=== PATIENT | female | born 1995 | race Caucasian/White ===

== ENCOUNTER 2017-02-04 04:38 | Emergency (ER) | payer OTHER ==
[2017-02-04 05:12] VITALS: BP 116/73; PULSE 82; TEMP 98.3; BMI 37.1
--- NOTE | 2017-02-04 05:12 | PDOC ---
History of Present Illness - General Stated Complaint: SWOLLEN RIGHT KNEE Time Seen by Provider: 02/04/17 04:55 History Source: Patient Exam Limitations: No Limitations - History of Present Illness Initial Comments: 02/04/17 05:12 21-year-old female without any medical history presents to the emergency department with her mother complaining of right knee pain times one day. Patient states she twisted her right knee earlier yesterday and was seen at an urgent care center ([facility]). Patient had an x-ray of the right knee which showed no dislocation or fracture. Pain is described as 6/10 dull nonradiating intermittent discomfort which is exacerbated on weight-bear and alleviated minimally at rest. This morning, patient noticed slight swelling which prompted her to come to the emergency department. Occurred: reports: yesterday Lower Extremity Pain Location: right: knee Method of Injury: Yes: twisted Modifying Factors: improves with: None Lower Ext. Injury Location - Specific Injury Location Hips: right hip: no evidence of injury, normal inspection, normal range of motion, non-tender Legs: right: normal inspection, non-tender, normal range of motion Knees: right soft tissue tenderness, right swelling, right pain, right other ( limited R.O.M./pain) Ankle: right no evidence of injury, right normal inspection, right normal range of motion Past History - Past Medical History Allergies/Adverse Reactions: Allergies Allergy/AdvReac Type Severity Reaction Status Date / Time No Known Allergies Allergy Verified 03/26/15 21:35 Home Medications: Ambulatory Orders Cephalexin Monohydrate [Keflex -] 500 mg PO BID 7 Days 03/27/15 Famotidine [Pepcid -] 20 mg PO BID 7 Days 03/27/15 Suicide Attempt (Hx): No Thyroid Disease: No - Immunization History Immunization Up to Date: No - Psycho/Social/Smoking Cessation Hx Anxiety: No Suicidal Ideation: No Smoking History: Never smoked Have you smoked in the past 12 months: No Hx Alcohol Use: No Drug/Substance Use Hx: No Substance Use Type: None Review of Systems - Review of Systems Able to Perform ROS?: Yes Comments:: 02/04/17 05:08 CONSTITUTIONAL: Absent: fever, chills, diaphoresis, generalized weakness, malaise, loss of appetite MUSCULOSKELETAL: +right knee pain Absent: myalgia, arthralgia, joint swelling SKIN: Absent: rash, itching, pallor HEMATOLOGIC/IMMUNOLOGIC: Is the patient limited Polish proficient: No *Physical Exam - Physical Exam Comments: 02/04/17 05:11 Right knee Decreased R.O.M./pain +swelling Neg obv deformities Neg ant midline tenderness on palp +valrus neg valgus Neg ant/posterior drawer sign Neg calf pain (Neg yaron's) Achilles intact right hip F.R.O.M. neg pain on palp Right ankle F.R.O.M. 2+ dp pulse neg obv def *DC/Admit/Observation/Transfer Diagnosis at time of Disposition: Right knee sprain Qualifiers: Encounter type: initial encounter Involved ligament of knee: other ligament Qualified Code(s): S83.8X1A - Sprain of other specified parts of right knee, initial encounter - Discharge Dispostion Disposition: HOME Condition at time of disposition: Stable Admit: No - Referrals Referrals: Dee Mathias MD [Primary Care Provider] - Nikolai Wade MD [Staff Physician] - - Patient Instructions Printed Discharge Instructions: DI for Knee Sprain Additional Instructions: Ice; 20 mins on alternating with 20 mins off for 48 hours while awake. Rest Elevate Follow up with your orthopedic surgeon or the one listed on the discharge form. Return to the ER for severe/persistent/worsening symptoms, extremity numbness/ tingling sensation. Follow up with Dr. Wade
== END 2017-02-04 05:20 | disposition home or self-care (01) ==
LOC: JER 04:38
DX: S83.8X1D Sprain of other specified parts of right knee, subsequent encounter (principal); X50.1XXD Overexertion from prolonged static or awkward postures, subsequent encounter; Y93.9 Activity, unspecified; Y92.9 Unspecified place or not applicable
CPT/HCPCS: 99282-25

== ENCOUNTER 2021-08-16 08:32 | Emergency (ER) | payer OTHER ==
[2021-08-16 08:57] VITALS: BP 130/92; PULSE 83; TEMP 98.1; BMI 39.1
[2021-08-16] MEDS ORDERED: IBUPROFEN 600 MG TABLET (FP) PO ONE ×2 (10:53→11:20)
[2021-08-16] MEDS ORDERED: DEXAMETHASONE LIQUID 0.5 MG/5 ML PO ONE (10:53)
[2021-08-16] MEDS ORDERED: DEXAMETHASONE SOD PHOSPHATE 10 MG/1 ML VIAL ONE (11:20)
== END 2021-08-16 11:40 | disposition home or self-care (01) ==
LOC: JER 08:32
DX: J04.0 Acute laryngitis (principal)
CPT/HCPCS: 87651; 87804; 87807; 99283-25; C9803; U0003; U0005

== ENCOUNTER 2022-06-27 12:43 | Emergency (ER) | payer OTHER ==
[2022-06-27 12:50] VITALS: BP 108/75; PULSE 68; RESP 18; TEMP 98.1; BMI 37.5
[2022-06-27] MEDS ORDERED: ACETAMINOPHEN 325 MG TABLET (FP) PO ONE (14:22)
[2022-06-27 14:47] LABS: BASO % 0.6 % (0-2.0); EOS % 2.4 % (0-4.5); HEMOGLOBIN 9.6 GM/dL (10.7-15.3); LYMPH % 30.1 % (8-40); MCH 22.6 pg (25.7-33.7); MEAN PLT VOLUME 7.3 fl (7.5-11.1); NEUT % 60.9 % (42.8-82.8); PLATELET COUNT 556 10^3/uL (134-434); RBC 4.24 M/mm3 (3.60-5.2); RDW 17.2 % (11.6-15.6)
[2022-06-27] MEDS ORDERED: ACETAMINOPHEN 325 MG TABLET (FP) ONE (16:15)
== END 2022-06-27 18:47 | disposition home or self-care (01) ==
LOC: JER 12:43
DX: N93.9 Abnormal uterine and vaginal bleeding, unspecified (principal)
CPT/HCPCS: 36415; 76830-TC; 84703; 85025; 99284-25

== ENCOUNTER 2023-12-13 03:21 | Emergency (ER) | payer SELFPAY ==
[2023-12-13 03:34] VITALS: BP 137/84; PULSE 88; RESP 18; TEMP 98.8; BMI 39.1
[2023-12-13 05:50] LABS: EPI CELLS 6 /uL (0-25.1); HYALINE CASTS 341 /uL (0-3.1); PH,URINE 5.5 (5.0-8.0); URINE APPEARANCE TURBID; URINE BILIRUBIN 1+ (NEGATIVE); URINE COLOR RED; URINE GLUCOSE (UA) NEGATIVE (NEGATIVE); URINE KETONE NEGATIVE (NEGATIVE); URINE LEUK ESTERASE 2+ (NEGATIVE); URINE NITRITE POSITIVE (NEGATIVE); URINE PROTEIN 3+ (NEGATIVE); URINE UROBILINOGEN 0.2 mg/dL (0.2-1.0); URINE WBC 1756 /uL (0-25.8)
[2023-12-13] MEDS ORDERED: CEPHALEXIN MONOHYDRATE 500 MG CAPSULE (UD) ONE (06:18)
[2023-12-13] MEDS: CEPHALEXIN MONOHYDRATE 500 MG CAPSULE (UD) PO ONE (06:22)
[2023-12-13 09:21] LABS: URINE BACTERIA 447.1 /uL (0-1359); URINE RBC 19083.8 /uL (0-23.9); YEAST NEGATIVE (NEGATIVE)
== END 2023-12-13 06:25 | disposition home or self-care (01) ==
LOC: JER 03:21
DX: N39.0 Urinary tract infection, site not specified (principal); R30.0 Dysuria; R31.9 Hematuria, unspecified
CPT/HCPCS: 81003; 87086; 87186; 99283-25

== ENCOUNTER 2024-03-12 23:28 | Emergency (ER) | payer OTHER ==
[2024-03-12 23:43] VITALS: BP 134/82; PULSE 80; RESP 16; TEMP 97.9; BMI 39.1
[2024-03-13] MEDS ORDERED: ACETAMINOPHEN 325 MG TABLET (FP) ONE (00:40)
[2024-03-13] MEDS: ACETAMINOPHEN 500 MG TABLET (FP) PO ONE (00:41)
== END 2024-03-13 01:24 | disposition home or self-care (01) ==
LOC: JER 23:28
DX: R07.81 Pleurodynia (principal)
CPT/HCPCS: 71046-TC-FY; 93005; 93010; 99284-25